=== PATIENT | male | born 2000 | race Caucasian/White ===

== ENCOUNTER 2022-10-04 20:37 | Emergency (ER) | payer OTHER, BC ==
[2022-10-04] MEDS ORDERED: Boostrix 0.5 ML (Tdap) VIAL (>/=7 yrs of age) ONE (21:14)
[2022-10-04 21:57] LABS: Actual Bicarbonate (HCO3v) 22.6 mEq/L (22-28); Base Excess -3.2 mEq/L (-2.0 to +3.0); Calcium, Ionized (venous) 1.13 mmol/L (1.16-1.32); Chloride (VBG) 109 mmol/L (98-106); Hematocrit-VBG 43 % (42.0-52.0); Hemoglobin (Hb) 14.6 g/dL (13.2-17.3); Potassium (VBG) 3.41 mmol/L (3.70-5.30); Sodium 142.1 mmol/L (133-146); pH (venous) 7.334 (7.32-7.43)
[2022-10-04 22:02] LABS: #Eosinphils 0.1 thou/uL (0.0-0.7); #Lymphocytes 1.2 thou/uL (1.20-3.40); #Monocytes 1.4 thou/uL (0.11-0.59); #Neutrophils 17.2 thou/uL (1.40-6.50); %Basophils 0.2 % (0.0-1.0); %Eosinophils 0.5 % (0.0-10.0); %Monocytes 7.1 % (0.0-10.0); %Neutrophils 86.2 % (42.0-75.0); Hemoglobin 13.8 g/dL (14.0-18.0); Mean Corpuscular HGB CONC 34.2 g/dL (32.0-36.0); Mean Corpuscular Hemoglobin 32.8 pg (27.0-31.0); Mean Corpuscular Volume 95.9 fl (78.0-98.0); Mean Platelet Volume 7.5 fL (7.4-10.4); Platelet Count 312 10x3/uL (130-400); RBC Distribution Width 11.3 % (11.5-14.5); Red Blood Cell (RBC) Count 4.21 mill/uL (4.70-6.10); White Blood Cell (WBC) Count 19.9 10x3/uL (4.8-10.8)
[2022-10-04 22:13] LABS: INR-International Normal Ratio 1.1; Prothrombin Time 14.5 sec (12.0-14.7)
[2022-10-04] MEDS ORDERED: fentaNYL 50 mcg/mL 1 mL Vial ONE (22:13)
[2022-10-04 22:14] LABS: PTT 25.2 sec (22.9-36.1)
[2022-10-04 22:23] LABS: ALT (SGPT) 11 U/L (8-55); AST (SGOT) 17 U/L (5-34); Albumin 4.3 g/dL (3.5-5.0); Alcohol Less than 10 mg/dL (Less than 10); Alkaline Phosphatase 64 U/L (40-110); Anion Gap 11 mmol/L (10-20); BUN (Urea Nitrogen) 13 mg/dL (8.9-20.6); Bilirubin, Total 0.4 mg/dL (0.2-1.2); Calc. Creatinine Clearance 0 mL/min (70-130); Calcium 8.7 mg/dL (7.8-10.44); Carbon Dioxide 21 mmol/L (22-29); Chloride 112 mmol/L (98-107); Estimated GFR 96; Globulin 2.3 g/dL (2.4-3.5); Glucose 96 mg/dL (70-105); Lipase 27 U/L (8-78); Potassium 3.4 mmol/L (3.5-5.1); Protein, Total 6.6 g/dL (6.0-8.3); Sodium 141 mmol/L (136-145)
[2022-10-04] MEDS ORDERED: PROPOFOL 20 ML ONE ×2 (23:01→23:12)
[2022-10-05] MEDS ORDERED: Lidocaine 1% w/Epinephrine 1:100K 20 ML VIAL ONE (00:07)
[2022-10-05] MEDS ORDERED: Morphine 4 MG/ML VIAL ONE (00:40)
== END 2022-10-05 01:29 | disposition home or self-care (01) ==
LOC: ERS 20:37
DX: S52.571A Other intraarticular fracture of lower end of right radius, initial encounter for closed fracture (principal); S52.611A Displaced fracture of right ulna styloid process, initial encounter for closed fracture; V29.408A Other motorcycle driver injured in collision with unspecified motor vehicles in traffic accident, initial encounter; Z23 Encounter for immunization
CPT/HCPCS: 12001; 25605; 36415; 71045; 72125; 72170; 80053; 80307; 82805; 83690; 85025; 85610; 85730; 90471; 90715; 93005; 96374; 96375; 99152; 99153; G0390; J2270; J2704; J3010

== ENCOUNTER 2022-10-16 13:13 | Day surgery (SDC) | payer OTHER, BC ==
[2022-10-15 12:07] VITALS: BMI 17.0
[2022-10-16] MEDS ORDERED: Bupivacaine PF 0.5% 30 ML VIAL ONE (14:52)
[2022-10-16] MEDS ORDERED: Midazolam HCl 2 mg/2 ml Vial ONE (15:11)
[2022-10-16] MEDS ORDERED: Bupivacaine/Epinephrine 0.25% 30 ML VIAL ONE (16:01)
[2022-10-16] MEDS ORDERED: Bupivacaine HCl 0.5%/Epinephrine 1:200,000/PF 30 ml Vial ONE (16:01)
[2022-10-16] MEDS ORDERED: Ondansetron PF 4 MG/2 ML Vial ONE (16:15)
[2022-10-16] MEDS ORDERED: PHENYLEPHRINE-NS 100 MCG/ML 10 ML SYRINGE ONE (16:15)
[2022-10-16] MEDS ORDERED: PROPOFOL 200 MG/20 ML VIAL ONE (16:15)
[2022-10-16] MEDS ORDERED: Dexamethasone 20 MG/5 ML VIAL ONE (16:15)
[2022-10-16] MEDS ORDERED: Lidocaine 1% PF 5 ML VIAL ONE (16:15)
[2022-10-16] MEDS ORDERED: fentaNYL PF 100 MCG/2 ML SYRINGE ONE (16:21)
[2022-10-16] MEDS ORDERED: Sodium Chloride 0.9% 100 ML ONE (16:22)
[2022-10-16] MEDS ORDERED: CEFAZOLIN 2 GM VIAL ONE (16:22)
== END 2022-10-16 18:25 | disposition home or self-care (01) ==
LOC: SDC 13:13
PROVIDERS: ATTEND Orthopaedic Surgery
PROC: 0PSH04Z Reposition Right Radius with Internal Fixation Device, Open Approach (ICD-10-PCS; principal; 2022-10-16)
DX: S52.531A Colles' fracture of right radius, initial encounter for closed fracture (principal); V29.99XA Rider (driver) (passenger) of other motorcycle injured in unspecified traffic accident, initial encounter
CPT/HCPCS: C1713; J1100; J2250; J2405; J2704; J3490; S0020